=== PATIENT | female | born 1935 | race Caucasian/White ===

== ENCOUNTER → 2019-05-14 | Outpatient (CLI) | payer MEDICARE, BC ==
--- NOTE | 2019-05-21 09:07 | MY ---
INDICATION: Cancer screening. MAMMOGRAPHY: Two-view bilateral digital screening 2-D mammography with breast tomosynthesis and computer aided detection was obtained 05/14/19 and compared with mammograms dating back to 04/01/14. DENSITY: Almost completely fatty breast tissue is noted bilaterally. There is again noted evidence of biopsy with scar in the retroareolar left breast. There is a small oval nodular density of questionable significance, measuring approximately 5 mm in the lower inner quadrant, which appears to have increased slightly in size from 4.2 mm on 05/25/18 to 5 mm on the current study in the CC projection 18 mm from the nipple in the medial portion of the right breast. This is seen on breast tomosynthesis in the CC projection, image #10 of 49 on the current study and #10 of 51 on the previous study. This finding likely represents an enlarging lymph node, but ultrasound will be obtained for confirmation. In the MLO breast tomosynthesis of the right breast, a 4.3 mm nodule, slightly more prominent than on the previous study, is noted, where it measured 4.1 to 4.2 mm, again 18 mm from the nipple in the lower portion of the right breast seen on breast tomosynthesis, image #16 of 54 currently and present previously on image #17 of 52 on the previous study of 05/25/18. Ultrasound will be necessary for further evaluation of this finding. A few other nodular appearing densities compatible with intramammary lymph nodes are also seen with no definite interval change. No significant interval change, dominant mass lesions, pathologic calcifications , skin thickening, or dimpling could be identified to suggest malignancy. IMPRESSION: 1. Possible developing density in the lower inner quadrant of the right breast. Ultrasound will be necessary for further evaluation. 2. Postsurgical, post biopsy left breast from 2003 biopsy. Category 0, incomplete. Needs additional imaging evaluation - right breast ultrasound. A letter will be sent to the patient indicating the results of her mammogram in lay terminology. LEVON
== END ==
LOC: FB.DI 12:48
PROVIDERS: ATTEND Nurse Practitioner Family
DX: Z12.31 Encounter for screening mammogram for malignant neoplasm of breast (principal)
CPT/HCPCS: 77063; 77067